=== PATIENT | male | born 1930 | race Caucasian/White ===

== ENCOUNTER 2017-02-24 10:52 | Observation (INO) | payer MEDICARE, MEDICAID ==
[~2017-02-24] VITALS: Ht 172.7 cm; Wt 84.1 kg
[~2017-02-24 10:52] MED LIST: ANTIVERT/2525 MG PO; ASPIRIN EC325 MG PO; CHLORDIAZEPOXID PO; CHLORPHENIRAMINE4 M1 PO; EPINASTINE HCL5 ML OP; ERY-TAB333 MG PO; FLONASE 50 MCG16 GM; FUROSEMIDE 20MG20 MG PO; HYDROCODONE1 TABLET PO; LIBRAX CAPSULE1 EACH PO; LISINOPRIL10 MG PO; MECLIZINE 25MG25 MG PO; NITROGLYCERIN0.4 MG SL; PANTOPRAZOLE SO40 MG PO; TYLENOL ARTHRI650 MG PO; ZANTAC 150150 MG PO
--- OUTSIDE RECORDS SUMMARY | 2017-02-24 10:54 | External Medical Summary Rpt | CCD ---
Author Author RAFAELA Address Unknown Phone Purpose Continuity of Care Document - 10-10-2016 through 2016
--- OUTSIDE RECORDS SUMMARY | 2017-02-24 10:54 | External Medical Summary Rpt | CCD ---
Demographics Preferred Language Cypriot Marital Status Unknown Alevism Affiliation Unknown Race Unknown Ethnic Group Unknown Author Author RAFAELA Address Unknown Phone [email or web address] Purpose Continuity of Care Document - through 2016
--- OUTSIDE RECORDS SUMMARY | 2017-02-24 10:54 | External Medical Summary Rpt | CCD ---
Demographics Preferred Language Andorran Marital Status Unknown Mosque Affiliation Unknown Race Unknown Ethnic Group Unknown Author Author RAFAELA Address Unknown Phone [email or web address] Purpose Continuity of Care Document - through 2016
--- OUTSIDE RECORDS SUMMARY | 2017-02-24 10:54 | External Medical Summary Rpt | CCD ---
Author Author RAFAELA Address Unknown Phone [email or web address] Purpose Continuity of Care Document - 10-10-2016 through 2016
--- OUTSIDE RECORDS SUMMARY | 2017-02-24 10:55 | External Medical Summary Rpt | CCD ---
Author Author , RAFAELA SMITH Address Unknown Phone [email or web address] Immunization Name Date Rout CVX Reac Dose Comm Prov Is Faci e tion ent ider Refu lity Give sed n Infl 08-2 Intr 141 999 Hist PD20 No PD20 uenz 4-20 amus oric 255 255 a, 17 cula al Seas r Info onal rmat ion - Sour ce Unsp ecif ied Infl 08-2 Intr 0.5 Hist KHAF No RITE uenz 4-20 amus mL oric SUDHEER AID0 a 17 cula al AYMA 3938 Tri, r Info N Adj rmat ion - Sour ce Unsp ecif ied Infl 09-0 Intr 135 0.5 Hist KHAF No RITE uenz 2-20 amus mL oric SUDHEER AID0 a, 16 cula al AYMA 3938 High r Info N rmat Dose ion - Sour ce Unsp ecif ied
--- OUTSIDE RECORDS SUMMARY | 2017-02-24 10:55 | External Medical Summary Rpt ---
Author Author SARAH Cristina, [employer] Organization [employer] Address Unknown Phone Unavailable Results Comprehensive metabolic 2000 panel in Serum or Plasma Observa Value Referen Units Interpr Notes Date tion ce etation Range Albumin/G 1.1 - 1.8 No Normal No Dec 12 lobulin informati informati 2016 [Mass on in on in 11:17 AM ratio] in source source Serum or data data Plasma Albumin 3.4 - 5.0 gm/dL Normal No Dec 12 [Mass/vol informati 2016 ume] in on in 11:17 AM Serum or source Plasma data Alkaline 46 - 116 U/L High No Dec 12 phosphata informati 2016 se on in 11:17 AM [Enzymati source c data activity/ volume] in Serum or Plasma Bilirubin 0.2 - 1.0 mg/dL Normal No Dec 12 .total informati 2016 [Mass/vol on in 11:17 AM ume] in source Serum or data Plasma Urea 7 - 18 mg/dL High No Dec 12 nitrogen informati 2016 [Mass/vol on in 11:17 AM ume] in source Serum or data Plasma Calcium 8.5 - mg/dL Normal No Dec 12 [Mass/vol 10.1 informati 2016 ume] in on in 11:17 AM Serum or source Plasma data Chloride 98 - 107 mmoL/L Normal No Dec 12 [Moles/vo informati 2016 lume] in on in 11:17 AM Serum or source Plasma data Carbon 21.0 - mmoL/L Normal No Dec 12 dioxide, 32.0 informati 2017 total on in 11:17 AM [Moles/vo source lume] in data Serum or Plasma Creatinin 0.70 - mg/dL Normal No Dec 12 e 1.30 informati 2016 [Mass/vol on in 11:17 AM ume] in source Serum or data Plasma Estimated >60 ML/MIN No REFERENCE Dec 12 informati RANGE: 2017 glomerula on in >60 11:17 AM r source ML/MIN/1. filtratio data 73 SQUARE n rate METERSIf (GF this patient is -A merican, then multiply theresult by 1.210. Globulin 1.3 - 3.2 gm/dL Normal No Dec 11 [Mass/vol informati 2016 ume] in on in 11:17 AM Serum source data Glucose 74 - 106 mg/dL Normal No Dec 12 [Mass/vol informati 2017 ume] in on in 11:17 AM Serum or source Plasma data Potassium 3.5 - 5.1 mmoL/L Normal No Dec 12 informati 2016 [Moles/vo on in 11:17 AM lume] in source Serum or data Plasma Sodium 136 - 145 mmoL/L Normal No Dec 12 [Moles/vo informati 2017 lume] in on in 11:17 AM Serum or source Plasma data Aspartate 15 - 37 U/L Normal No Dec 12 informati 2016 aminotran on in 11:17 AM sferase source [Enzymati data c activity/ volume] in Serum or Plasma Alanine 12 - 78 U/L Normal No Dec 12 aminotran informati 2016 sferase on in 11:17 AM [Enzymati source c data activity/ volume] in Serum or Plasma Protein 6.4 - 8.2 gm/dL Normal No Dec 12 [Mass/vol informati 2016 ume] in on in 11:17 AM Serum or source Plasma data Comprehensive metabolic 2000 panel in Serum or Plasma Observa Value Referen Units Interpr Notes Date tion ce etation Range Albumin/G 1.1 - 1.8 No Normal No Oct 10 lobulin informati informati 2016 [Mass on in on in 12:01 PM ratio] in source source Serum or data data Plasma Albumin 3.4 - 5.0 gm/dL Normal No Oct 10 [Mass/vol informati 2016 ume] in on in 12:01 PM Serum or source Plasma data Alkaline 46 - 116 U/L High No Oct 10 phosphata informati 2017 se on in 12:01 PM [Enzymati source c data activity/ volume] in Serum or Plasma Bilirubin 0.2 - 1.0 mg/dL Normal No Oct 10 .total informati 2017 [Mass/vol on in 12:01 PM ume] in source Serum or data Plasma Urea 7 - 18 mg/dL High No Oct 10 nitrogen informati 2017 [Mass/vol on in 12:01 PM ume] in source Serum or data Plasma Calcium 8.5 - mg/dL Normal No Oct 10 [Mass/vol 10.1 informati 2016 ume] in on in 12:01 PM Serum or source Plasma data Chloride 98 - 107 mmoL/L Normal No Oct 10 [Moles/vo informati 2017 lume] in on in 12:01 PM Serum or source Plasma data Carbon 21.0 - mmoL/L Normal No Oct 10 dioxide, 32.0 informati 2017 total on in 12:01 PM [Moles/vo source lume] in data Serum or Plasma Creatinin 0.70 - mg/dL Normal No Oct 10 e 1.30 informati 2016 [Mass/vol on in 12:01 PM ume] in source Serum or data Plasma Estimated >60 ML/MIN No REFERENCE Oct 10 informati RANGE: 2017 glomerula on in >60 12:01 PM r source ML/MIN/1. filtratio data 73 SQUARE n rate METERSIf (GF this patient is -A merican, then multiply theresult by 1.210. Globulin 1.3 - 3.2 gm/dL High No Oct 10 [Mass/vol informati 2016 ume] in on in 12:01 PM Serum source data Glucose 74 - 106 mg/dL Normal No Oct 10 [Mass/vol informati 2016 ume] in on in 12:01 PM Serum or source Plasma data Potassium 3.5 - 5.1 mmoL/L High No Oct 10 informati 2016 [Moles/vo on in 12:01 PM lume] in source Serum or data Plasma Sodium 136 - 145 mmoL/L Normal No Oct 10 [Moles/vo informati 2017 lume] in on in 12:01 PM Serum or source Plasma data Aspartate 15 - 37 U/L Low No Oct 10 informati 2016 aminotran on in 12:01 PM sferase source [Enzymati data c activity/ volume] in Serum or Plasma Alanine 12 - 78 U/L Normal No Oct 10 aminotran informati 2016 sferase on in 12:01 PM [Enzymati source c data activity/ volume] in Serum or Plasma Protein 6.4 - 8.2 gm/dL Normal No Oct 10 [Mass/vol informati 2017 ume] in on in 12:01 PM Serum or source Plasma data Lipid 1996 panel in Serum or Plasma Observa Value Referen Units Interpr Notes Date tion ce etation Range Cholester < 200 mg/dL No No Oct 10 ol informati informati 2017 [Moles/vo on in on in 12:01 PM lume] in source source Unspecifi data data ed specimen Cholester 40 - 60 MG/DL Normal No Oct 10 ol in HDL 2016 on in 12:01 PM [Mass/vol source ume] in data Serum or Plasma Cholester 0 - 130 mg/dL Normal No Oct 10 ol in LDL 2016 on in 12:01 PM [Mass/vol source ume] in data Serum or Plasma by calculati on Triglycer 30 - 200 mg/dL Normal No Oct 10 clyde 2016 [Moles/vo on in 12:01 PM lume] in source Serum or data Plasma Cholester 0 - 40 No Normal No Oct 10 ol in informati 2016 VLDL on in on in 12:01 PM [Mass/vol source source ume] in data data Serum or Plasma CBC W Auto Differential panel in Blood Observa Value Referen Units Interpr Notes Date tion ce etation Range Basophils 0 - 0.2 K/MM3 Normal No Oct 102016 [#/volume on in 12:01 PM ] in source Blood by data Automated count Basophils 0.1 - 2.0 % Normal No Oct 10 /100 2016 leukocyte on in 12:01 PM s in source Blood by data Automated count Eosinophi 0.0 - 0.4 K/mm3 Normal No Oct 10 ls 2016 [#/volume on in 12:01 PM ] in source Blood by data Automated count Eosinophi 0.1 - % Normal No Oct 10 ls/100 12.0 2016 leukocyte on in 12:01 PM s in source Blood by data Automated count Granulocy 1.3 - 8.0 K/mm3 Normal No Oct 10 breanne 2016 [#/volume on in 12:01 PM ] in source Blood by data Automated count Granulocy 37.0 - % Normal No Oct 10 breanne/100 80.0 2016 leukocyte on in 12:01 PM s in source Blood by data Automated count Hematocri 42.0 - % Normal No Oct 10 t [Volume 52.0 2016 on in 12:01 PM Fraction] source of Blood data Hemoglobi 14.1 - g/dL Normal No Oct 10 n 18.0 2016 [Mass/vol on in 12:01 PM ume] in source Blood data Lymphocyt 0.7 - 4.5 K/mm3 Normal No Oct 9 es inform2016 [#/volume on in 12:01 PM ] in source Unspecifi data ed specimen by Automated count Lymphocyt 10 - 50 % Normal No Oct 9 es inform2016 [#/volume on in 12:01 PM ] in source Unspecifi data ed specimen by Automated count Erythrocy 27 - 31.2 pg Normal No Oct 9 te mean 2016 corpuscul on in 12:01 PM ar source hemoglobi data n [Entitic mass] Erythrocy 31.8 - g/dl Low No Oct 10 te mean 35.4 2016 corpuscul on in 12:01 PM ar source hemoglobi data n concentra tion [Mass/vol ume] by Automated count Erythrocy 82.2 - fl Normal No Oct 10 te mean 97.8 2016 corpuscul on in 12:01 PM ar volume source [Entitic data volume] by Automated count Monocytes 0.1 - 1.0 K/mm3 Normal No Oct 10 inform2016 [#/volume on in 12:01 PM ] in source Blood by data Automated count Monocytes 1.7 - 9.3 % Normal No Oct 9 /100 2016 leukocyte on in 12:01 PM s in source Blood by data Automated count Platelet 7.4 - fl Normal No Oct 10 mean 10.4 inform2016 volume on in 12:01 PM [Entitic source volume] data in Blood by Automated count Platelets 142 - 424 K/mm3 Normal No Oct 9 2016 [#/volume on in 12:01 PM ] in source Blood data Erythrocy 4.6 - 6.2 M/mm3 Normal No Oct 9 breanne informati 2016 [#/volume on in 12:01 PM ] in source Amniotic data fluid Erythrocy 11.5 - % Normal No Oct 10 te 17.5 informati 2016 distribut on in 12:01 PM ion width source [Entitic data volume] by Automated count Leukocyte 4.8 - K/MM3 Normal No Oct 9 s 10.8 informati 2016 [#/volume on in 12:01 PM ] in source Blood data
--- OUTSIDE RECORDS SUMMARY | 2017-02-24 10:55 | External Medical Summary Rpt | CCD ---
Author Author , RAFAELA SMITH Address Unknown Phone [email or web address] Immunization Name Date Rout CVX Reac Dose [...]
[2017-02-24 11:44] VITALS: BP 116/78
--- NOTE | 2017-02-24 11:49 | HISTORY AND PHYSICAL REPORT ---
Demographics: Admit date: 02/24/17 Chief complaint: chest pain PRIMARY DIAGNOSIS: angina Allergies: Coded Allergies: Penicillins (Intermediate, HIVES, SWELLING 12/19/16) History of present illness: History of present illness: 86-year-old white male with a history of gastric ulcer, coronary artery disease status post coronary artery bypass graft, hypertension, and CVA 2 presented to internal medicine clinic with a one-month history of increasing shortness of breath with exertion and midsternal chest pain. Over the last month patient states he has had to sit down to get his breath during activities he was previously able to execute. Symptoms have significantly increased over the last 2 weeks. Patient states he had some midsternal chest pain this morning that radiated to the LEFT side of his chest. He denied any pain upon exam. He does report a nonproductive cough that has been ongoing for the last 6 months. He also has chronic clear rhinorrhea. He denies any other ENT symptoms. No fevers or other constitutional symptoms. Patient was admitted to acute care with telemetry for serial enzymes, electrocardiograms and further evaluation Past medical history: Family HX Diabetes Yes CAD Yes Hypertension No Hyperlipidemia No Cancer Yes TB No Immunization HX DT/Tetanus Unknown Flu 2012-FSN Pneumonia Received In Past General Angina: Yes MA: Yes Hypertension? Yes Hyperlipidemia? No CHF? No DVT? No PE? No COPD? No Asthma? No GERD? No Gastric ulcers? Yes GI Bleed? No Hernia? No Thyroid Problems? No Hypothyroidism? No CVA? Yes Seizures? No Diabetes? No UTI? Yes Stones? Yes GB Disease: No Nephritic Syndrome? No Asplenia? No Hepatitis? No Sickle Cell Disease? No Arthritis? Yes Cataracts? Yes Glaucoma? No TB? No Cancer? No Past Surgical HX Previous Surgery?Y RT KNEE REPLACEMENT Coronary Artery Bypass CYSTOSCOPY - REMOVE STONES BILAT CATARACTS REMOVED Current home meds: Active Scripts HYDROCODONE 5MG/APAP 325MG (Hydrocodon-Acetaminophen 5-325) 1 TABLET PO Q6HP PRN MODERATE PAIN #20 TABLET Prov: 08/12/13 Reported Medications Furosemide (Furosemide) 20 MG PO DAILY 90 Days ASPIRIN (Aspirin EC) 325 MG PO DAILY Lisinopril 10 MG PO BID 30 Days Fluticasone Propionate (Flonase 50 Mcg Nasal [place]) 2 SPRAY NA DAILY CLIDINIUM & CHLORDIAZEPOXIDE (Chlordiazepoxide-Clidinium Cap) 1 CAP PO BID Pantoprazole Sodium (Pantoprazole 40MG) 40 MG PO DAILY NITROGLYCERIN (Nitrostat) 0.4 MG SL [id number] PRN CHEST PAIN Social Hx: Alcohol Alcohol: No Hx of Drug Use Drug Use? No Patien't marital status is Patient's support system is good Review of systems: Constitutional No: no symptoms reported. Eyes No: no symptoms reported. Ears, Nose, Mouth, Throat No ear pain, No ear discharge, nose discharge (chronic, clear), No nose congestion, No throat pain Respiratory cough (non-productive), SOB with excertion. Cardiovascular see HPI Gastrointestinal/Abdominal No no symptoms reported Genitourinary No: no symptoms reported. Musculoskeletal No: no symptoms reported. Skin No: no symptoms reported. Neurological No: no symptoms reported. Psychiatric No: no symptoms reported. Plan: Problem List 1. Chest pain Assessment/Plan Monitor telemetry. Serial EKG's and enzymes. Obtain Echo and CXR. Will evaluate results and consider cardiology consult. 2. HTN (hypertension) 3. History of CVA (cerebrovascular accident) 4. History of coronary artery bypass graft Plan: See above at 1148
[2017-02-24 12:26] VITALS: BP 170/90
[2017-02-24 12:39] LABS: LYMPH # 1.9 K/mm3 (0.7-4.5); LYMPH % 26.8 % (10-50)
[2017-02-24 12:57] LABS: HEMOGLOBIN 12.7 g/dL (14.1-18.0)
--- NOTE | 2017-02-24 13:42 | RADIOLOGY REPORT PS360 ---
CHEST(2 VIEWS-NOT PORTABLE) HISTORY: CHEST PAIN, COUGH ORDERING PHYSICIAN: Elias Ortiz MD PATIENT AGE: 86 years COMPARISON: 07/25/2013 FINDINGS: There has been a prior median sternotomy with CABG. Normal heart size. The lungs are clear bilaterally. No lobar consolidation or collapse. Mild retained change thoracic spine. IMPRESSION: No change with no acute finding.
[2017-02-24 16:30] VITALS: BP 126/80
[2017-02-24 19:54] VITALS: BP 164/92
--- NOTE | 2017-02-24 19:55 | RADIOLOGY REPORT PS360 ---
PROCEDURE: 2-D M-mode and color Doppler study INDICATIONS FOR THE TEST: Chest pain X COPD Heart Murmur Tobacco Smoking Palpitations Fatigue Syncope Edema HypertensionXDiabetes Mellitus Rheumatic Fever SOBXDOE Obesity HyperlipidemiaX Family History HD Additional History CAD,CABG PATIENT INFORMATION HEIGHT: 69 WEIGHT:186 GENDER: Male B/P:170/90 2-D/M-MODE INTERPRETATION: 2-D MEASUREMENTS OBSERVED VALUES IN CMS Right Ventricular Dimension (RVDd) 3.4 Interventricular Septum (Thickness)(IVsd) 1.0 Left Ventricular Internal Dimensions(LVIDd) 5.3 Left Ventricular Posterior Wall (Thickness)(LVPWd) 1.2 Aortic Root 3.5 Aortic Cusp Separation 1.4 Left Atrial Dimensions (LAD) 3.5 2D 1. Technically difficult study because of the patient's factor and poor acoustic windows. 2. The left atrium is mildly enlarged, left ventricle is normal size, there is borderline concentric left ventricular hypertrophy, visually estimated ejection fraction 55% with no obvious regional wall motion abnormality. 3. The right-sided chambers are poorly visualized, however the right ventricle appears to be moderately enlarged with normal contractility. 4. The aortic valve is minimally thickened and fibrosed. 5. The mitral valve leaflets are minimally thickened. 6. The tricuspid valve is not well visualized. 7. The pulmonic valve is poorly seen. 8. No significant pericardial effusion noted. DOPPLER INTERROGATION: Doppler interrogation of the aortic, mitral and tricuspid valve is of mild mitral regurgitation, tricuspid valve is not well evaluated. Diastolic parameters are inconclusive. CONCLUSION: 1. Technically difficult study because of the patient's factor and poor acoustic windows 2. Mildly enlarged left atrium, normal left ventricular size, borderline concentric left ventricular hypertrophy, visually estimated ejection fraction approximately 55% in the obtained views with no obvious regional wall motion abnormality. 3. The right-sided chambers of the heart are not well visualized, however right ventricle appears to be moderately enlarged with normal contractility. 4. No significant pericardial effusion noted.
[2017-02-24 20:50] VITALS: BP 164/92
[2017-02-24 23:56] VITALS: BP 138/77
[2017-02-25] VITALS (19 sets, daily range): BP systolic 115–155; BP diastolic 60–85
--- NOTE | 2017-02-25 07:16 | PHARMACY CLINIC NOTE ---
Patient Demographics Patient Demographics Admission date: 02/24/17 Date: 02/25/17 Time: 0715 Allergies Coded Allergies: Penicillins (Intermediate, HIVES, SWELLING 12/19/16) HEIGHT- FT: 5 IN: 8.00 K.142 VTE General Information Labs: Laboratory Tests 02/24 1200 Hematology Hgb (14.1 - 18.0 g/dL) 12.7 L Hct (42.0 - 52.0 %) 40.8 L Plt Count (142 - 424 K/mm3) 200 Disclaimer The following section includes nursing documentation that has been pulled in for pharmacy review. Patient's VTE score: 1 Patient's VTE Risk: VERY LOW RISK Clinical trial participant? No VTE prophylaxis [id number] VTE prophylaxis ordered? Yes Type of prophylaxis/treatment: RUBI at 0715
--- NOTE | 2017-02-25 08:05 | ACUTE CARE PROGRESS NOTE (QUA) ---
Progress Notes Subjective Date 02/25/17 Time 0803 Note Patient was comfortable overnight, did not sleep well but this is his baseline. Fleeting chest pain but nothing significant and has no pain currently. Heart rate regular. Lungs have some smoker's rhonchi, abdomen soft, no edema. Alert, oriented 3. Objective Findings Last VS-Temp:98.4 B/P:155/85 Pulse:69 Resp:20 SaO2:97 ROOM AIR Last weight lbs:185 oz:8 K.142 Method:Bed Scales Assessment/Plan Problem List 1. Chest pain 2. HTN (hypertension) 3. History of CVA (cerebrovascular accident) 4. History of coronary artery bypass graft Patient condition Stable Plan: consult needle grader, evaluate for significant risk issues. Ruled out for myocardial infarction. This inpt stay is expected to cross 2 MNs from start of care No at 0804
--- NOTE | 2017-02-25 08:05 | ACUTE CARE PROGRESS NOTE (QUA) ---
Progress Notes Subjective Date 02/25/17 Time 0803 Note Patient was comfortable overnight, did not sleep well but this is his baseline. Fleeting chest pain but nothing significant and has no pain currently. Heart rate regular. Lungs have some smoker's rhonchi, abdomen soft, no edema. Alert, oriented 3. Objective Findings Last VS-Temp:98.4 B/P:155/85 Pulse:69 Resp:20 SaO2:97 ROOM AIR Last weight lbs:185 oz:8 K.142 Method:Bed Scales Assessment/Plan Problem List 1. Chest pain 2. HTN (hypertension) 3. History of CVA (cerebrovascular accident) 4. History of coronary artery bypass graft Patient condition Stable Plan: consult guide rail cleaner, evaluate for significant risk issues. Ruled out for myocardial infarction. This inpt stay is expected to cross 2 MNs from start of care No at 0804
--- NOTE | 2017-02-25 09:17 | CONSULT NOTE ---
Standard Demographics Patient Demo Date of Consultation: 02/25/17 Referring Provider: Elias Ortiz MD Reason for Consultation: Angina pectoris PRIMARY DIAGNOSIS: angina Problem list Problem list: 1. CAD A. History of 3 vessel CABG about 2005, [place], [place] 2. HTN A. Cough possibly related to lisinopril 3. 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 Over the last month patient states he has had to sit down to get his breath during activities he was previously able to execute. Symptoms have significantly increased over the last 2 weeks. Patient states he had some midsternal chest pain this morning that radiated to the LEFT side of his chest. He denied any pain upon exam. He does report a nonproductive cough that has been ongoing for the last 6 months. He also has chronic clear rhinorrhea. He denies any other ENT symptoms. No fevers or other constitutional symptoms. Patient was admitted to acute care with telemetry for serial enzymes, electrocardiograms and further evaluation The above per Dr. Ortiz Pt relates using NTG tabs for the chest pain with quick resolution of symptoms. Cardiology consulted for evaluation and recommendations. 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 Pt denies any near-syncope or syncope. Past Medical History: General: Hypertension Yes CVA Yes Seizures No TB No COPD No Asthma No Diabetes No Angina Yes CO Yes Hyperlipidemia No Urinary Yes Cancer No Rheumatic H.D. No Ulcers Yes GB Disease No Other ALLERGIES Past Surgical HX: Previous Surgery?Y RT KNEE REPLACEMENT Coronary Artery Bypass CYSTOSCOPY - REMOVE STONES BILAT CATARACTS REMOVED Allergies Coded Allergies: Penicillins (Intermediate, HIVES, SWELLING 12/19/16) Home medications: Active Scripts HYDROCODONE 5MG/APAP 325MG (Hydrocodon-Acetaminophen 5-325) 1 TABLET PO Q6HP PRN MODERATE PAIN #20 TABLET Prov: 08/12/13 Reported Medications Furosemide (Furosemide) 20 MG PO DAILY 90 Days ASPIRIN (Aspirin EC) 325 MG PO DAILY Lisinopril 10 MG PO BID 30 Days Fluticasone Propionate (Flonase 50 Mcg Nasal [place]) 2 SPRAY NA DAILY CLIDINIUM & CHLORDIAZEPOXIDE (Chlordiazepoxide-Clidinium Cap) 1 CAP PO BID Pantoprazole Sodium (Pantoprazole 40MG) 40 MG PO DAILY NITROGLYCERIN (Nitrostat) 0.4 MG SL [id number] PRN CHEST PAIN Current Medications: Current Medications Aspirin 325 MG DAILY PO Furosemide 20 MG DAILY PO Pantoprazole Sodium 40 MG DAILY PO Lisinopril 10 MG BID PO Miscellaneous Information 1 EACH PRN PRN XX Sodium Chloride 10 ML PRN PRN IV Immunization HX DT/Tetanus Unknown Flu [id number] Pneumonia RECEIVED IN PAST TB Test in last year No Family history Family HX Family Hx Insignificant No Diabetes Yes CAD Yes Hypertension No Hyperlipidemia No Cancer Yes TB No Social Hx: Smoking HX Are you/the child exposed to second-hand smoke: No Alcohol Alcohol: No Hx of Drug Use Drug Use? No Review of systems: Constitutional No: no symptoms reported. Respiratory SOB with excertion. Cardiovascular see HPI, chest pain Gastrointestinal/Abdominal No no symptoms reported Genitourinary No: no symptoms reported. Musculoskeletal joint pain. Neurological No: no symptoms reported. Exam: Admission Vital Signs: 1ST Vital Signs Result Date Time Pulse Ox 96 02/24 1144 O2 Delivery ROOM AIR 02/24 1144 B/P 116/78 02/24 1144 Temp 98.7 02/24 1144 Pulse 68 02/24 1144 Resp 20 02/24 1144 Last Vital Signs: Vital Signs Result Date Time Pulse Ox 97 02/25 0751 B/P 155/85 02/25 0751 O2 Delivery ROOM AIR 02/25 0751 Temp 98.4 02/25 0751 Pulse 69 02/25 0751 Resp 20 02/25 0751 Exam General appearance: alert, awake, no acute distress Neck: no carotid bruit, no JVD Cardiovascular: regular rate & rhythm, no murmur Respiratory: clear to auscultation, good air movement ABD: soft, no tenderness Extremities: moves all, no peripheral edema Neuro: alert, intact, oriented Laboratory data: Laboratory Tests 02/24/17 1900: Creatine Kinase 90, CK-MB (CK-2) Rel Index 1.3, CK and CKMB Interp 1.2, Troponin I < 0.02 02/24/17 1603: Creatine Kinase 87, CK-MB (CK-2) Rel Index 1.1, CK and CKMB Interp 1.0, Troponin I < 0.02 02/24/17 1200: Creatine Kinase 95, CK-MB (CK-2) Rel Index 1.3, CK and CKMB Interp 1.2, Troponin I < 0.02 02/24/17 1200: Sodium 140, Potassium 4.5, Chloride 102, Carbon Dioxide 32, BUN 17, Creatinine 1.1, Estimated Creat Clear 56, Estimated GFR (MDRD) 63, Glucose 76, Calcium 9.3, Total Bilirubin 0.5, AST 26, ALT 21, Alkaline Phosphatase 222 H, B-Natriuretic Peptide 110 H, Total Protein 7.3, Albumin 3.9, Globulin 3.4 H, Albumin/ Globulin Ratio 1.1, TSH 3.19, WBC 7.1, RBC 4.87, Hgb 12.7 L, Hct 40.8 L, MCV 83.8, RDW 14.4, Plt Count 200, MPV 7.8, Gran % 60.4, Gran # 4.3, Lymphocytes % 26.8, Monocytes % 9.2, Eosinophils % 2.9, Basophils % 0.7, Lymphocytes # 1.9, Monocytes # 0.7, Eosinophils # 0.2, Basophils # 0.1, PUBS MCHC 30.9 L, MCH 25.9 L Plan: Assessment: 1. Symptoms of BRANCH and chest pain consistent with AP class 3. JOHNY score of 5 ( age, CAD, ASA use, recurrent chest pain and risk factors). Will proceed with cardiac cath today for further evaluation. Continue ASA. 2. CAD with 3 vessel CABG about 2005 per patient 3. HTN, controlled 4. Unknown cholesterol status 5. Possible DONNA induced cough. Will await cath report and consider ARB afterwards. 6. History of CVA. Recommendations: 1. [facility] today 2. Further recommendations to follow 3. Obtain echo to evaluate LV size, function as well as RV size and function along with valve status. at [id number]
--- NOTE | 2017-02-25 13:00 | RADIOLOGY REPORT PS360 ---
CARDIAC CATHETERIZATION DATE OF CATHETERIZATION:02/25/2017 10:52 AM PROCEDURES: 1. Left heart catheterization 2. Left ventriculogram 3. Selective coronary angiogram 4. Selective engagement of the saphenous vein graft to the diagonal artery 5. Left internal mammary angiography INDICATION FOR TEST: 1. Unstable angina 2. Coronary artery disease history of past surgery 3. History of coronary artery bypass grafting Informed consent was obtained prior to the procedure. COMPLICATIONS: None ESTIMATED BLOOD LOSS: Less than 10 ml. TECHNIQUE: One percent lidocaine was used to anesthetize the right groin. The right femoral artery was accessed via the Seldinger technique. A 4-[place] sheath was placed in the right femoral artery. The JL-4 and JR-4 and LCR catheter was also used to perform left heart catheterization left ventriculogram selective coronary angiogram and elective engagement of the vein graft to the diagonal artery as well as indirect were nonselective angiography of the left internal mammary artery. At the end of the procedure the patient was transferred to the post-op holding area in stable condition for arterial sheath removal. ANGIOGRAPHIC RESULTS: 1. The left main artery normal 2. The left anterior descending artery has proximal mild to moderate vascular ectasia with mid vessel 50 and then 80% stenoses and then occluded. 3. The circumflex artery is a dominant vessel and has moderate vascular ectasia throughout its proximal and mid segment. There is no stenosis greater than 10:30 percent in the circumflex system 4. The right coronary artery is small nondominant and has a 90% mid vessel stenosis. Distal to this stenosis is a very small amount of myocardium only supplying the right ventricle 5. The SULLIVAN ventriculogram reveals moderate left ventricular dilatation ejection fraction 45% 6. The left ventricular end-diastolic pressure 10 mmHg 7. The left internal mammary artery is a widely patent graft which makes its anastomosis on to the LAD and is free of disease 8. The saphenous vein graft to the first diagonal artery is widely patent. The diagonal artery itself is a small to moderate amount of myocardium IMPRESSION: 1. Patent coronary arteries as described above 2. Severe disease in a very small clinically insignificant nondominant right coronary artery 3. Left ventricular dilatation with reduced ejection fraction most likely coming from hypertensive heart disease 4. Normal left ventricular end-diastolic pressure PLAN: 1. Patient needs aggressive control of hypertension. While on the table his blood pressure was severely elevated requiring IV labetalol and hydralazine. I strongly suspect his angina symptoms are coming from hypertension 2. I recommend carvedilol plus a dihydropyridine calcium channel riley and whatever medically necessary to better control his hypertension 3. Baby aspirin daily 4. Risk factor modification
[2017-02-25] MEDS ORDERED: EPINASTINE HCL5 ML OP (13:36)
[2017-02-25] MEDS ORDERED: PRESERVISION A1 EAC1 PO (13:37)
[2017-02-25] MEDS ORDERED: ALEVE220 MG PO (13:38)
[2017-02-25] MEDS ORDERED: CARVEDILOL 1212.5 MG PO (14:12)
[2017-02-25] MEDS ORDERED: AMLODIPINE5 M1 PO (14:13)
--- NOTE | 2017-02-25 14:14 | DISCHARGE SUMMARY STANDARD ---
Demographics Admit date: 02/24/17 Discharge date: 02/25/17 History of present illness History of present illness 86-year-old white male with a history of gastric ulcer, coronary artery disease status post coronary artery bypass graft, hypertension, and CVA 2 presented to internal medicine clinic with a one-month history of increasing shortness of breath with exertion and midsternal chest pain. Over the last month patient states he has had to sit down to get his breath during activities he was previously able to execute. Symptoms have significantly increased over the last 2 weeks. Patient states he had some midsternal chest pain this morning that radiated to the LEFT side of his chest. He denied any pain upon exam. He does report a nonproductive cough that has been ongoing for the last 6 months. He also has chronic clear rhinorrhea. He denies any other ENT symptoms. No fevers or other constitutional symptoms. Patient was admitted to acute care with telemetry for serial enzymes, electrocardiograms and further evaluation The above per Dr. Ortiz Pt relates using NTG tabs for the chest pain with quick resolution of symptoms. Cardiology consulted for evaluation and recommendations. 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 Pt denies any near-syncope or syncope. Hospital Course Hospital Course: Patient was admitted, ruled out for myocardial infarction. Taken for left heart catheter this morning which revealed no evidence of coronary disease but significant hypertensive changes in his myocardium. It was recommended that he be discharged with continuing aspirin therapy and more aggressive blood pressure reduction. The patient has been having some cough with lisinopril therapy he'll be changed to carvedilol amlodipine therapy, close followup in 6 days . Discharge diagnoses Problem List 1. Chest pain 2. HTN (hypertension) 3. History of CVA (cerebrovascular accident) 4. History of coronary artery bypass graft Medications Medications: Discharge meds are as noted. Follow up Follow up in office in: 6 DAYS with: ANIL SHAH APRN at [id number]
== END 2017-02-25 16:55 | disposition home or self-care (01) ==
LOC: 2ND 10:52
PROVIDERS: Internal Medicine; Internal Medicine Adolescent Medicine
PROC: B2121ZZ Fluoroscopy of Single Coronary Artery Bypass Graft using Low Osmolar Contrast (ICD-10-PCS; 2017-02-25)
PROC: B2111ZZ Fluoroscopy of Multiple Coronary Arteries using Low Osmolar Contrast (ICD-10-PCS; 2017-02-25)
PROC: B2181ZZ Fluoroscopy of Left Internal Mammary Bypass Graft using Low Osmolar Contrast (ICD-10-PCS; 2017-02-25)
PROC: B2151ZZ Fluoroscopy of Left Heart using Low Osmolar Contrast (ICD-10-PCS; 2017-02-25)
PROC: 4A023N7 Measurement of Cardiac Sampling and Pressure, Left Heart, Percutaneous Approach (ICD-10-PCS; principal; 2017-02-25 11:30)
DX: I25.110 Atherosclerotic heart disease of native coronary artery with unstable angina pectoris (principal); Z95.1 Presence of aortocoronary bypass graft; I10 Essential (primary) hypertension; R06.09 Other forms of dyspnea; I69.393 Ataxia following cerebral infarction
CPT/HCPCS: C1725; C1769; G0378; J1644; Q9967